=== PATIENT | female | born 1925 | race Caucasian/White ===

== ENCOUNTER 2016-11-17 12:14 | Inpatient (IN) | payer MEDICARE, OTHER ==
[~2016-11-17] VITALS: Ht 154.9 cm; Wt 56.2 kg
[~2016-11-17 12:14] MED LIST: BENA20TA2 PO; CHOL200026 PO; FLUC100T8 PO; FURO40TA5 PO; GEL100GE MC; HYDR-3976 PO; LACT-15 PO; LEVO50TA8 PO; LORA0.5T PO; POTA-10 PO; QUET25TA PO; RIVA10TA PO; SIMV20TA6 PO; TEMA15CA PO; [UNRECOGNIZED DRUG - CODE] TP
[2016-11-17] MEDS ORDERED: VANCOMYCIN 1 GM in IV D5W 250 ML IV ONE (12:30)
[2016-11-17] MEDS ORDERED: PIPERACILLIN /TAZOBACTAM 3.375 G in IV D5W 50 ML IV ONE (12:30)
[2016-11-17 13:00] LABS: BASOPHILS # (AUTO) 0.5 /CMM (0.0-0.2); BASOPHILS % (AUTO) 2.6 % (0.0-2.0); DIFF TOTAL % 100 %; EOSINOPHILS # (AUTO) 0.2 /CMM (0.0-0.7); EOSINOPHILS % (AUTO) 0.9 % (0.0-6.0); HEMATOCRIT 42 % (33-45); HEMOGLOBIN 13.4 g/dL (11.5-14.8); LYMPHOCYTES # (AUTO) 1.5 /CMM (0.8-4.8); LYMPHOCYTES % (AUTO) 7.3 % (20.0-44.0); MEAN CORPUSCULAR HEMOGLOBIN 29 PG (26.0-33.0); MEAN CORPUSCULAR HGB CONC 32 g/dl (31.0-36.0); MEAN CORPUSCULAR VOLUME 92 fL (82-100); MONOCYTES # (AUTO) 0.3 /CMM (0.1-1.30); MONOCYTES % (AUTO) 1.6 % (2.0-12.0); NEUTROPHILS # (AUTO) 17.9 /CMM (1.8-8.9); NEUTROPHILS % (AUTO) 87.6 % (43.0-81.0); PLATELET COUNT (AUTO) 265 /CMM (150-450); RED BLOOD CELL COUNT(AUTO) 4.57 MIL/uL (4.0-5.2); WHITE BLOOD COUNT (AUTO) 20.4 K/uL (4.3-11.0)
[2016-11-17 13:11] LABS: INR 1.11 (0.87-1.13); PROTHROMBIN TIME 11.7 SECS (9.5-12.7)
[2016-11-17 13:15] LABS: TROPONIN I 0.039 ng/mL (0.00-0.056)
[2016-11-17 13:19] LABS: ADD UA MICROSCOPIC YES; KETONES,URINE Negative (NEGATIVE); LEUKOCYTE ESTERASE ,URINE Trace (NEGATIVE); PH,URINE 5.5 (5.0-8.0)
[2016-11-17 13:23] LABS: ALANINE AMINOTRANSFERASE 13 U/L (12-78); ALBUMIN 2.2 g/dL (3.4-5.0); ANION GAP 13 (5-14); ASPARTATE AMINOTRANSFERASE 24 U/L (15-37); BILIRUBIN,DIRECT 0.6 mg/dL (0.0-0.2); BILIRUBIN,TOTAL 1.1 mg/dL (0.2-1.0); CALCIUM, SERUM 8.9 mg/dL (8.5-10.1); CARBON DIOXIDE 29 mmol/L (21-32); CHLORIDE 99 mmol/L (98-107); CREATININE 1.9 mg/dL (0.6-1.3); GLUCOSE 106 mg/dL (74-106); INDIRECT BILIRUBIN 0.5 mg/dL (0.0-1.1); POTASSIUM 4.9 mmol/L (3.5-5.1); SODIUM SERUM 136 mmol/L (136-145); TOTAL PROTEIN, SERUM 6.7 g/dL (6.4-8.2); UREA NITROGEN, BLOOD 52 mg/dL (7-18)
[2016-11-17 13:30] LABS: RBC,URINE 0-2 /HPF (0-2)
[2016-11-17 13:31] LABS: ADD URINE CULTURE YES
[2016-11-17] MEDS ORDERED: IV SET PRIMARY PUMP SET 1 EA INFUS.SET MC ONE ×2 (13:31→17:28)
[2016-11-17 13:47] LABS: LACTIC ACID 2.8 mmol/L (0.4-2.0)
[2016-11-17] MEDS ORDERED: IV NS 0.9% 1,000 ML ONE (13:50)
[2016-11-17] MEDS ORDERED: IV SET PRIMARY 1 EA INFUS.SET MC ONE ×2 (13:50→13:57)
[2016-11-17 13:54] LABS: *LACTIC ACID REFLEX FLAG YES
[2016-11-17] MEDS ORDERED: IV NS 0.9% 250 ML IV ONE ×2 (13:57→14:00)
[2016-11-17] MEDS ORDERED: IV NS 0.9% 500 ML IV ONE ×2 (13:57→14:00)
[2016-11-17] MEDS ORDERED: IV NS 0.9% 1,000 ML IV ONE (14:00)
[2016-11-17 15:20] LABS: BAND % (MANUAL) 2 % (0.0-5.0); LYMPHOCYTES % (MANUAL) 6 % (16-48)
[2016-11-17 15:21] LABS: ANISOCYTOSIS 2+; BASOPHILS % (MANUAL) 0 % (0.0-2.0); EOSINOPHILS % (MANUAL) 0 % (0-4)
[2016-11-17 15:22] LABS: PLATELET ESTIMATE ADEQUATE; RBC MORPHOLOGY COMMENT NORMAL RBC MORPH
[2016-11-17 16:00] VITALS: BP 134/65
[2016-11-17] MEDS ORDERED: Z GUARD REMEDY 2 OZ OINT TP PRN (16:30)
[2016-11-17] MEDS ORDERED: ONDANSETRON HCL/PF 4 MG/2 ML VIAL IVP PRN (16:30)
[2016-11-17] MEDS ORDERED: MAG HYDROX/AL HYDROX/SIMETH 30 ML UDC PO PRN (16:30)
[2016-11-17] MEDS ORDERED: ACETAMINOPHEN 325 MG TABLET PO PRN (16:30)
[2016-11-17] MEDS ORDERED: MAGNESIUM HYDROXIDE 30 ML UDC PO PRN (16:30)
[2016-11-17] MEDS ORDERED: LORAZEPAM 0.5 MG TABLET PO PRN (16:30)
[2016-11-17] MEDS ORDERED: FEE PK DOSING 1 MIN EA MC ONE (16:47)
[2016-11-17] MEDS: IV NS 0.9% 1,000 ML IV PRN (17:42)
[2016-11-17] MEDS: RIVAROXABAN 10 MG TABLET PO SCH (17:43)
[2016-11-17 20:00] VITALS: BP 91/56
[2016-11-17] MEDS: SIMVASTATIN 20 MG TABLET PO SCH (21:22)
[2016-11-17] MEDS: QUETIAPINE FUMARATE 25 MG TABLET PO SCH (21:22)
[2016-11-17] MEDS: PIPERACILLIN /TAZOBACTAM 2.25 G in IV D5W 50 ML IV SCH (21:25)
[2016-11-17] MEDS: HYDROGEL DRESSING 90 GM TUBE TP SCH (21:33)
[2016-11-17] MEDS ORDERED: TEMAZEPAM 15 MG CAPSULE PO PRN (22:00)
[2016-11-17] MEDS ORDERED: ZOLPIDEM TARTRATE 5 MG TABLET PO PRN (22:00)
[2016-11-18] VITALS (7 sets, daily range): BP systolic 86–106; BP diastolic 54–57
[2016-11-18] MEDS: PIPERACILLIN /TAZOBACTAM 2.25 G in IV D5W 50 ML IV SCH ×3 (04:21→20:46)
[2016-11-18 06:44] LABS: DIFF TOTAL % 100 %; EOSINOPHILS % (AUTO) 0.1 % (0.0-6.0); HEMATOCRIT 36 % (33-45); HEMOGLOBIN 11.6 g/dL (11.5-14.8); LYMPHOCYTES # (AUTO) 0.5 /CMM (0.8-4.8); LYMPHOCYTES % (AUTO) 2.6 % (20.0-44.0); MEAN CORPUSCULAR HEMOGLOBIN 30 PG (26.0-33.0); MEAN CORPUSCULAR HGB CONC 32 g/dl (31.0-36.0); MEAN CORPUSCULAR VOLUME 94 fL (82-100); MONOCYTES # (AUTO) 0.3 /CMM (0.1-1.30); MONOCYTES % (AUTO) 1.3 % (2.0-12.0); PLATELET COUNT (AUTO) 216 /CMM (150-450); RED BLOOD CELL COUNT(AUTO) 3.85 MIL/uL (4.0-5.2); WHITE BLOOD COUNT (AUTO) 18.8 K/uL (4.3-11.0)
[2016-11-18] MEDS: PANTOPRAZOLE 40 MG TABLET.DR PO SCH (07:30)
[2016-11-18] MEDS: HYDROCODONE/APAP 5/325MG 1 EACH TABLET PO PRN ×2 (07:31→12:34)
[2016-11-18] MEDS: LEVOTHYROXINE SODIUM 50 MCG TABLET PO SCH (09:21)
[2016-11-18] MEDS: CHOLECALCIFEROL 1,000 UNIT TABLET (VIT D3) PO SCH (09:21)
[2016-11-18] MEDS: RIVAROXABAN 10 MG TABLET PO SCH ×2 (09:21→17:41)
[2016-11-18] MEDS: HYDROGEL DRESSING 90 GM TUBE TP SCH ×2 (09:22→20:46)
[2016-11-18 09:26] LABS: CALCIUM, SERUM 8.5 mg/dL (8.5-10.1); CREATININE 1.7 mg/dL (0.6-1.3); PHOSPHORUS 5.3 mg/dL (2.5-4.9); POTASSIUM 4.3 mmol/L (3.5-5.1)
[2016-11-18 10:26] LABS: THYROID STIMULATING HORMONE 3.842 uIU/mL (0.358-3.74)
[2016-11-18] MEDS: NEOMY SULF/BACITRAC ZN/POLY 15 GM TUBE TP SCH (14:46)
[2016-11-18] MEDS: IV NS 0.9% 1,000 ML IV PRN ×2 (14:46→23:22)
[2016-11-18] MEDS ORDERED: IV NS 0.9% 500 ML BAG IV ONE (20:00)
[2016-11-18] MEDS ORDERED: MORPHINE SULFATE INJ 2 MG/ML DISP.SYRIN IV PRN (20:00)
[2016-11-18] MEDS ORDERED: MORPHINE SULFATE INJ 2 MG/ML DISP.SYRIN ONE (20:08)
[2016-11-18] MEDS ORDERED: MUPIROCIN OINT 2% 22 GM TUBE SCH (21:00)
[2016-11-18] MEDS: MUPIROCIN OINT 2% 22 GM TUBE SCH (21:02)
[2016-11-18] MEDS: SIMVASTATIN 20 MG TABLET PO SCH (21:12)
[2016-11-18] MEDS: QUETIAPINE FUMARATE 25 MG TABLET PO SCH (21:12)
[2016-11-19] MEDS: VANCOMYCIN 0.75 GM in IV D5W 250 ML IV SCH (02:00)
[2016-11-19] MEDS ORDERED: SECONDARY IV SET 1 EA INFUS.SET MC ONE (02:03)
[2016-11-19] MEDS: PIPERACILLIN /TAZOBACTAM 2.25 G in IV D5W 50 ML IV SCH ×3 (05:04→20:53)
[2016-11-19 07:21] LABS: HEMATOCRIT 33 % (33-45); HEMOGLOBIN 10.8 g/dL (11.5-14.8); MEAN CORPUSCULAR HEMOGLOBIN 30 PG (26.0-33.0); MEAN CORPUSCULAR HGB CONC 32 g/dl (31.0-36.0); MEAN CORPUSCULAR VOLUME 94 fL (82-100); PLATELET COUNT (AUTO) 176 /CMM (150-450); RED BLOOD CELL COUNT(AUTO) 3.55 MIL/uL (4.0-5.2)
[2016-11-19 07:46] LABS: CALCIUM, SERUM 7.8 mg/dL (8.5-10.1); PHOSPHORUS 5.5 mg/dL (2.5-4.9); POTASSIUM 4.7 mmol/L (3.5-5.1)
[2016-11-19 08:00] VITALS: BP 79/41
[2016-11-19 08:00] LABS: BAND % (MANUAL) 3 % (0.0-5.0); EOSINOPHILS % (MANUAL) 2 % (0-4); LYMPHOCYTES % (MANUAL) 6 % (16-48); PLATELET ESTIMATE ADEQUATE
[2016-11-19 08:01] LABS: ANISOCYTOSIS 1+; HYPOCHROMASIA 1+; POIKILOCYTOSIS RARE
[2016-11-19] MEDS: CHOLECALCIFEROL 1,000 UNIT TABLET (VIT D3) PO SCH (08:32)
[2016-11-19] MEDS: PANTOPRAZOLE 40 MG TABLET.DR PO SCH (08:32)
[2016-11-19] MEDS: RIVAROXABAN 10 MG TABLET PO SCH ×2 (08:32→17:05)
[2016-11-19] MEDS: LEVOTHYROXINE SODIUM 50 MCG TABLET PO SCH (08:32)
[2016-11-19] MEDS: NEOMY SULF/BACITRAC ZN/POLY 15 GM TUBE TP SCH (08:35)
[2016-11-19] MEDS: HYDROGEL DRESSING 90 GM TUBE TP SCH ×2 (08:35→20:54)
[2016-11-19] MEDS: MUPIROCIN OINT 2% 22 GM TUBE SCH ×2 (08:36→20:54)
[2016-11-19] MEDS ORDERED: Z GUARD REMEDY 2 OZ OINT TP PRN (14:30)
[2016-11-19] MEDS: CADEXOMER IODINE 40 GM TUBE TP SCH (15:16)
[2016-11-19 16:00] VITALS: BP 79/42
[2016-11-19] MEDS: LACTOBACILLUS RHAMNOSUS GG 1 EACH CAP.SPRINK PO SCH (17:02)
[2016-11-19] MEDS: Z GUARD REMEDY 2 OZ OINT TP SCH (17:08)
[2016-11-19 17:36] VITALS: BP_SYST 129; BP_SYST 139; BP_SYST 143; BP_DIAS 67; BP_DIAS 80; BP_DIAS 82
[2016-11-19 20:00] VITALS: BP 73/53
[2016-11-19] MEDS: SIMVASTATIN 20 MG TABLET PO SCH (22:01)
[2016-11-19] MEDS: QUETIAPINE FUMARATE 25 MG TABLET PO SCH (22:01)
[2016-11-20] MEDS: PIPERACILLIN /TAZOBACTAM 2.25 G in IV D5W 50 ML IV SCH ×3 (04:52→21:09)
[2016-11-20 08:00] VITALS: BP 74/50
[2016-11-20] MEDS: BOOST PLUS FOOD-VANILLA 237 ML BOX PO SCH ×3 (08:16→16:05)
[2016-11-20] MEDS: LEVOTHYROXINE SODIUM 50 MCG TABLET PO SCH (08:18)
[2016-11-20] MEDS: CHOLECALCIFEROL 1,000 UNIT TABLET (VIT D3) PO SCH (08:18)
[2016-11-20] MEDS: PANTOPRAZOLE 40 MG TABLET.DR PO SCH (08:18)
[2016-11-20] MEDS: MULTIVITAMINS,THERAPEUTIC 1 UDTAB TABLET PO SCH (08:18)
[2016-11-20] MEDS: LACTOBACILLUS RHAMNOSUS GG 1 EACH CAP.SPRINK PO SCH ×2 (08:18→16:04)
[2016-11-20] MEDS: ASCORBIC ACID 500 MG TABLET PO SCH (08:18)
[2016-11-20] MEDS: Z GUARD REMEDY 2 OZ OINT TP SCH ×2 (08:20→16:06)
[2016-11-20] MEDS: HYDROGEL DRESSING 90 GM TUBE TP SCH ×2 (08:20→21:17)
[2016-11-20] MEDS: MUPIROCIN OINT 2% 22 GM TUBE SCH ×2 (08:21→21:17)
[2016-11-20] MEDS: CADEXOMER IODINE 40 GM TUBE TP SCH (08:22)
[2016-11-20] MEDS: NEOMY SULF/BACITRAC ZN/POLY 15 GM TUBE TP SCH (08:23)
[2016-11-20] MEDS: RIVAROXABAN 10 MG TABLET PO SCH ×2 (08:24→16:04)
[2016-11-20] MEDS: VANCOMYCIN 0.75 GM in IV D5W 250 ML IV SCH (13:34)
[2016-11-20] MEDS ORDERED: ALBUMIN 25% 25 GM in PREMIX 1 EA IV SCH (14:00)
[2016-11-20 16:00] VITALS: BP 83/48
[2016-11-20] MEDS ORDERED: IV NS 0.9% 500 ML IV ONE (19:30)
[2016-11-20 20:00] VITALS: BP 74/41
[2016-11-20] MEDS: QUETIAPINE FUMARATE 25 MG TABLET PO SCH (21:09)
[2016-11-20] MEDS: SIMVASTATIN 20 MG TABLET PO SCH (21:09)
[2016-11-20] MEDS ORDERED: IV SET PRIMARY PUMP SET 1 EA INFUS.SET MC ONE (21:36)
[2016-11-20 22:00] VITALS: BP 74/41
[2016-11-21] MEDS: PIPERACILLIN /TAZOBACTAM 2.25 G in IV D5W 50 ML IV SCH ×3 (05:40→21:55)
[2016-11-21 08:00] VITALS: BP 88/56
[2016-11-21 08:00] LABS: DIFF TOTAL % 100 %; EOSINOPHILS % (AUTO) 0.2 % (0.0-6.0); HEMATOCRIT 27 % (33-45); HEMOGLOBIN 8.9 g/dL (11.5-14.8); LYMPHOCYTES # (AUTO) 1.4 /CMM (0.8-4.8); LYMPHOCYTES % (AUTO) 11.4 % (20.0-44.0); MEAN CORPUSCULAR HEMOGLOBIN 31 PG (26.0-33.0); MEAN CORPUSCULAR HGB CONC 34 g/dl (31.0-36.0); MEAN CORPUSCULAR VOLUME 91 fL (82-100); MONOCYTES # (AUTO) 0.8 /CMM (0.1-1.30); MONOCYTES % (AUTO) 6.7 % (2.0-12.0); NEUTROPHILS # (AUTO) 10.1 /CMM (1.8-8.9); NEUTROPHILS % (AUTO) 81.7 % (43.0-81.0); PLATELET COUNT (AUTO) 188 /CMM (150-450); RED BLOOD CELL COUNT(AUTO) 2.93 MIL/uL (4.0-5.2); WHITE BLOOD COUNT (AUTO) 12.3 K/uL (4.3-11.0)
[2016-11-21] MEDS: IV NS 0.9% 1,000 ML IV PRN ×2 (08:17→21:55)
[2016-11-21] MEDS: MULTIVITAMINS,THERAPEUTIC 1 UDTAB TABLET PO SCH (08:18)
[2016-11-21] MEDS: PANTOPRAZOLE 40 MG TABLET.DR PO SCH (08:18)
[2016-11-21] MEDS: LEVOTHYROXINE SODIUM 50 MCG TABLET PO SCH (08:18)
[2016-11-21] MEDS: CHOLECALCIFEROL 1,000 UNIT TABLET (VIT D3) PO SCH (08:18)
[2016-11-21] MEDS: LACTOBACILLUS RHAMNOSUS GG 1 EACH CAP.SPRINK PO SCH ×2 (08:18→17:43)
[2016-11-21] MEDS: ASCORBIC ACID 500 MG TABLET PO SCH (08:18)
[2016-11-21] MEDS: RIVAROXABAN 10 MG TABLET PO SCH ×2 (08:19→17:43)
[2016-11-21] MEDS: MUPIROCIN OINT 2% 22 GM TUBE SCH ×2 (08:19→21:58)
[2016-11-21] MEDS: HYDROGEL DRESSING 90 GM TUBE TP SCH ×2 (08:19→21:59)
[2016-11-21] MEDS: CADEXOMER IODINE 40 GM TUBE TP SCH (08:19)
[2016-11-21] MEDS: Z GUARD REMEDY 2 OZ OINT TP SCH ×2 (08:20→17:44)
[2016-11-21] MEDS: NEOMY SULF/BACITRAC ZN/POLY 15 GM TUBE TP SCH (08:20)
[2016-11-21] MEDS: BOOST PLUS FOOD-VANILLA 237 ML BOX PO SCH ×3 (08:22→17:44)
[2016-11-21 09:10] LABS: CALCIUM, SERUM 7.6 mg/dL (8.5-10.1); CREATININE 1.7 mg/dL (0.6-1.3); PHOSPHORUS 4.3 mg/dL (2.5-4.9); POTASSIUM 4.8 mmol/L (3.5-5.1)
[2016-11-21 16:00] VITALS: BP 80/46
[2016-11-21 20:00] VITALS: BP 77/52
[2016-11-21] MEDS: QUETIAPINE FUMARATE 25 MG TABLET PO SCH (21:59)
[2016-11-21] MEDS: SIMVASTATIN 20 MG TABLET PO SCH (21:59)
[2016-11-22] MEDS: VANCOMYCIN 0.75 GM in IV D5W 250 ML IV SCH (02:30)
[2016-11-22] MEDS: PIPERACILLIN /TAZOBACTAM 2.25 G in IV D5W 50 ML IV SCH ×3 (05:08→21:08)
[2016-11-22 08:00] VITALS: BP 84/51
[2016-11-22] MEDS: PANTOPRAZOLE 40 MG TABLET.DR PO SCH (08:40)
[2016-11-22] MEDS: LEVOTHYROXINE SODIUM 50 MCG TABLET PO SCH (08:41)
[2016-11-22] MEDS: ASCORBIC ACID 500 MG TABLET PO SCH (08:41)
[2016-11-22] MEDS: CHOLECALCIFEROL 1,000 UNIT TABLET (VIT D3) PO SCH (08:41)
[2016-11-22] MEDS: MULTIVITAMINS,THERAPEUTIC 1 UDTAB TABLET PO SCH (08:41)
[2016-11-22] MEDS: RIVAROXABAN 10 MG TABLET PO SCH (08:43)
[2016-11-22] MEDS: LACTOBACILLUS RHAMNOSUS GG 1 EACH CAP.SPRINK PO SCH ×2 (08:43→16:42)
[2016-11-22] MEDS: CADEXOMER IODINE 40 GM TUBE TP SCH (08:52)
[2016-11-22] MEDS: NEOMY SULF/BACITRAC ZN/POLY 15 GM TUBE TP SCH (08:53)
[2016-11-22] MEDS: HYDROGEL DRESSING 90 GM TUBE TP SCH ×2 (08:57→23:04)
[2016-11-22] MEDS: BOOST PLUS FOOD-VANILLA 237 ML BOX PO SCH ×3 (08:57→17:20)
[2016-11-22] MEDS: Z GUARD REMEDY 2 OZ OINT TP SCH ×2 (08:58→17:20)
[2016-11-22] MEDS: HYDROCODONE/APAP 5/325MG 1 EACH TABLET PO PRN ×2 (09:37→15:30)
[2016-11-22 09:55] LABS: BASOPHILS % (AUTO) 0.2 % (0.0-2.0); DIFF TOTAL % 100 %; EOSINOPHILS % (AUTO) 0.3 % (0.0-6.0); HEMATOCRIT 24 % (33-45); HEMOGLOBIN 7.8 g/dL (11.5-14.8); LYMPHOCYTES # (AUTO) 0.5 /CMM (0.8-4.8); LYMPHOCYTES % (AUTO) 4.5 % (20.0-44.0); MEAN CORPUSCULAR HEMOGLOBIN 30 PG (26.0-33.0); MEAN CORPUSCULAR HGB CONC 33 g/dl (31.0-36.0); MEAN CORPUSCULAR VOLUME 93 fL (82-100); MONOCYTES # (AUTO) 0.6 /CMM (0.1-1.30); MONOCYTES % (AUTO) 4.7 % (2.0-12.0); NEUTROPHILS # (AUTO) 10.6 /CMM (1.8-8.9); NEUTROPHILS % (AUTO) 90.3 % (43.0-81.0); PLATELET COUNT (AUTO) 206 /CMM (150-450); RED BLOOD CELL COUNT(AUTO) 2.56 MIL/uL (4.0-5.2); WHITE BLOOD COUNT (AUTO) 11.7 K/uL (4.3-11.0)
[2016-11-22] MEDS: MUPIROCIN OINT 2% 22 GM TUBE SCH ×2 (10:14→21:00)
[2016-11-22 12:12] LABS: CALCIUM, SERUM 8.1 mg/dL (8.5-10.1); CREATININE 1.7 mg/dL (0.6-1.3); POTASSIUM 4.2 mmol/L (3.5-5.1)
[2016-11-22 16:00] VITALS: BP 71/38
[2016-11-22 16:21] LABS: HEMOGLOBIN 7.7 g/dL (11.5-14.8)
[2016-11-22 20:00] VITALS: BP_SYST 85; BP_DIAS 50; BP_DIAS 70
[2016-11-22] MEDS: SIMVASTATIN 20 MG TABLET PO SCH (21:09)
[2016-11-22] MEDS: QUETIAPINE FUMARATE 25 MG TABLET PO SCH (21:09)
[2016-11-22] MEDS ORDERED: BLOOD IV SET 1 EA INFUS.SET MC ONE (21:22)
[2016-11-22] MEDS ORDERED: IV NS 0.9% 250 ML IV ONE (21:22)
[2016-11-22 21:43] VITALS: BP 62/39
[2016-11-22 21:58] VITALS: BP 68/47
[2016-11-22 22:43] VITALS: BP 73/44
[2016-11-23] MEDS ORDERED: IV SET PRIMARY PUMP SET 1 EA INFUS.SET MC ONE (02:14)
[2016-11-23] MEDS: IV NS 0.9% 1,000 ML IV PRN ×2 (02:19→20:49)
[2016-11-23] MEDS ORDERED: SECONDARY IV SET 1 EA INFUS.SET MC ONE (05:25)
[2016-11-23] MEDS: PIPERACILLIN /TAZOBACTAM 2.25 G in IV D5W 50 ML IV SCH ×3 (05:32→22:43)
[2016-11-23 08:00] VITALS: BP 85/47
[2016-11-23] MEDS: LEVOTHYROXINE SODIUM 50 MCG TABLET PO SCH (08:06)
[2016-11-23] MEDS: PANTOPRAZOLE 40 MG TABLET.DR PO SCH (08:06)
[2016-11-23] MEDS: LACTOBACILLUS RHAMNOSUS GG 1 EACH CAP.SPRINK PO SCH ×2 (08:06→17:56)
[2016-11-23] MEDS: ASCORBIC ACID 500 MG TABLET PO SCH (08:07)
[2016-11-23] MEDS: CHOLECALCIFEROL 1,000 UNIT TABLET (VIT D3) PO SCH (08:07)
[2016-11-23] MEDS: MULTIVITAMINS,THERAPEUTIC 1 UDTAB TABLET PO SCH (08:07)
[2016-11-23] MEDS: HYDROGEL DRESSING 90 GM TUBE TP SCH ×2 (08:15→22:45)
[2016-11-23] MEDS: Z GUARD REMEDY 2 OZ OINT TP SCH ×2 (08:16→18:01)
[2016-11-23] MEDS: NEOMY SULF/BACITRAC ZN/POLY 15 GM TUBE TP SCH (08:16)
[2016-11-23] MEDS: CADEXOMER IODINE 40 GM TUBE TP SCH (08:16)
[2016-11-23] MEDS: HYDROCODONE/APAP 5/325MG 1 EACH TABLET PO PRN ×3 (09:30→17:56)
[2016-11-23 09:51] LABS: CALCIUM, SERUM 8.2 mg/dL (8.5-10.1); CREATININE 1.9 mg/dL (0.6-1.3); POTASSIUM 4.6 mmol/L (3.5-5.1)
[2016-11-23 09:56] LABS: BASOPHILS % (AUTO) 0.3 % (0.0-2.0); DIFF TOTAL % 100 %; EOSINOPHILS % (AUTO) 0.3 % (0.0-6.0); HEMATOCRIT 29 % (33-45); HEMOGLOBIN 9.4 g/dL (11.5-14.8); LYMPHOCYTES # (AUTO) 0.7 /CMM (0.8-4.8); LYMPHOCYTES % (AUTO) 4.7 % (20.0-44.0); MEAN CORPUSCULAR HEMOGLOBIN 30 PG (26.0-33.0); MEAN CORPUSCULAR HGB CONC 33 g/dl (31.0-36.0); MEAN CORPUSCULAR VOLUME 92 fL (82-100); MONOCYTES # (AUTO) 0.7 /CMM (0.1-1.30); MONOCYTES % (AUTO) 4.9 % (2.0-12.0); NEUTROPHILS # (AUTO) 12.5 /CMM (1.8-8.9); NEUTROPHILS % (AUTO) 89.8 % (43.0-81.0); PLATELET COUNT (AUTO) 169 /CMM (150-450); RED BLOOD CELL COUNT(AUTO) 3.13 MIL/uL (4.0-5.2)
[2016-11-23] MEDS: BOOST PLUS FOOD-VANILLA 237 ML BOX PO SCH ×3 (10:48→18:01)
[2016-11-23] MEDS: MUPIROCIN OINT 2% 22 GM TUBE SCH (10:48)
[2016-11-23 16:00] VITALS: BP 81/53
[2016-11-23 20:00] VITALS: BP 71/52
[2016-11-23] MEDS: SIMVASTATIN 20 MG TABLET PO SCH (22:42)
[2016-11-23] MEDS: QUETIAPINE FUMARATE 25 MG TABLET PO SCH (22:42)
[2016-11-24 02:17] VITALS: BP 71/52
[2016-11-24] MEDS: PIPERACILLIN /TAZOBACTAM 2.25 G in IV D5W 50 ML IV SCH ×3 (05:22→20:55)
[2016-11-24] MEDS: PANTOPRAZOLE 40 MG TABLET.DR PO SCH (07:30)
[2016-11-24 08:00] VITALS: BP 108/69
[2016-11-24] MEDS: BOOST PLUS FOOD-VANILLA 237 ML BOX PO SCH ×3 (08:00→17:47)
[2016-11-24 08:12] LABS: CALCIUM, SERUM 8.4 mg/dL (8.5-10.1); CREATININE 2.3 mg/dL (0.6-1.3); POTASSIUM 5.6 mmol/L (3.5-5.1)
[2016-11-24 08:48] LABS: BASOPHILS % (AUTO) 0.2 % (0.0-2.0); DIFF TOTAL % 100 %; EOSINOPHILS % (AUTO) 0.1 % (0.0-6.0); HEMATOCRIT 25 % (33-45); HEMOGLOBIN 7.9 g/dL (11.5-14.8); LYMPHOCYTES # (AUTO) 0.5 /CMM (0.8-4.8); LYMPHOCYTES % (AUTO) 2.5 % (20.0-44.0); MEAN CORPUSCULAR HEMOGLOBIN 30 PG (26.0-33.0); MEAN CORPUSCULAR HGB CONC 32 g/dl (31.0-36.0); MEAN CORPUSCULAR VOLUME 92 fL (82-100); MONOCYTES % (AUTO) 5.1 % (2.0-12.0); NEUTROPHILS # (AUTO) 18.1 /CMM (1.8-8.9); NEUTROPHILS % (AUTO) 92.1 % (43.0-81.0); PLATELET COUNT (AUTO) 147 /CMM (150-450); RED BLOOD CELL COUNT(AUTO) 2.66 MIL/uL (4.0-5.2); WHITE BLOOD COUNT (AUTO) 19.6 K/uL (4.3-11.0)
[2016-11-24] MEDS: LACTOBACILLUS RHAMNOSUS GG 1 EACH CAP.SPRINK PO SCH ×2 (09:00→17:47)
[2016-11-24] MEDS: MULTIVITAMINS,THERAPEUTIC 1 UDTAB TABLET PO SCH (09:00)
[2016-11-24] MEDS: NEOMY SULF/BACITRAC ZN/POLY 15 GM TUBE TP SCH (09:00)
[2016-11-24] MEDS: LEVOTHYROXINE SODIUM 50 MCG TABLET PO SCH (09:00)
[2016-11-24] MEDS ORDERED: IV NS 0.9% 500 ML IV ONE (09:00)
[2016-11-24] MEDS: Z GUARD REMEDY 2 OZ OINT TP SCH ×2 (09:00→17:46)
[2016-11-24] MEDS: HYDROGEL DRESSING 90 GM TUBE TP SCH ×2 (09:00→20:56)
[2016-11-24] MEDS ORDERED: VANCOMYCIN 500 MG in IV D5W 100 ML IV SCH (09:00)
[2016-11-24] MEDS: CHOLECALCIFEROL 1,000 UNIT TABLET (VIT D3) PO SCH (09:00)
[2016-11-24] MEDS: CADEXOMER IODINE 40 GM TUBE TP SCH (09:00)
[2016-11-24] MEDS: ASCORBIC ACID 500 MG TABLET PO SCH (09:00)
[2016-11-24 09:10] LABS: ANISOCYTOSIS 1+; BAND % (MANUAL) 9 % (0.0-5.0); CORRECTED WHITE BLOOD COUNT 18.7 K/uL (4.0-11.2); LYMPHOCYTES % (MANUAL) 4 % (16-48); PLATELET ESTIMATE DECREASED; POLYCHROMASIA 1+
[2016-11-24] MEDS ORDERED: ALBUMIN 25% 12.5 GM/50 ML BOTTLE IV ONE (11:00)
[2016-11-24] MEDS ORDERED: ALBUMIN 25% 25 GM in PREMIX 1 EA IV ONE (11:30)
[2016-11-24] MEDS ORDERED: SECONDARY IV SET 1 EA INFUS.SET MC ONE (12:28)
[2016-11-24] MEDS: HYDROCODONE/APAP 5/325MG 1 EACH TABLET PO PRN (15:41)
[2016-11-24 16:00] VITALS: BP 76/36
[2016-11-24 16:40] LABS: HEMOGLOBIN 8.3 g/dL (11.5-14.8)
[2016-11-24 20:00] VITALS: BP 72/38
[2016-11-24] MEDS: MUPIROCIN OINT 2% 22 GM TUBE SCH ×2 (21:19→21:51)
[2016-11-24] MEDS: SIMVASTATIN 20 MG TABLET PO SCH (21:20)
[2016-11-24] MEDS: QUETIAPINE FUMARATE 25 MG TABLET PO SCH (21:20)
[2016-11-25] VITALS (16 sets, daily range): BP systolic 70–87; BP diastolic 38–54
[2016-11-25 00:06] LABS: KETONES,URINE NEGATIVE (NEGATIVE); LEUKOCYTE ESTERASE ,URINE 3+ (NEGATIVE); PH,URINE 5.5 (5.0-8.0)
[2016-11-25 00:09] LABS: CREATININE, URINE 53.6 MG/DL (30.0-125.0); URINE TOTAL PROTEIN 204.2 mg/dL (0-11.9)
[2016-11-25 00:36] LABS: ADD UA MICROSCOPIC YES
[2016-11-25 00:41] LABS: ADD URINE CULTURE YES; RBC,URINE TOO NUMEROUS TO COUN /HPF (0-2); WBC,URINE TOO NUMEROUS TO COUN /HPF (0-3)
[2016-11-25] MEDS: IV NS 0.9% 1,000 ML IV PRN (01:43)
[2016-11-25] MEDS: PIPERACILLIN /TAZOBACTAM 2.25 G in IV D5W 50 ML IV SCH ×3 (04:16→22:20)
[2016-11-25 07:54] LABS: DIFF TOTAL % 100 %; HEMATOCRIT 21 % (33-45); LYMPHOCYTES # (AUTO) 0.7 /CMM (0.8-4.8); LYMPHOCYTES % (AUTO) 3.8 % (20.0-44.0); MEAN CORPUSCULAR HEMOGLOBIN 30 PG (26.0-33.0); MEAN CORPUSCULAR HGB CONC 32 g/dl (31.0-36.0); MEAN CORPUSCULAR VOLUME 93 fL (82-100); MONOCYTES # (AUTO) 0.9 /CMM (0.1-1.30); MONOCYTES % (AUTO) 5.2 % (2.0-12.0); NEUTROPHILS # (AUTO) 15.9 /CMM (1.8-8.9); PLATELET COUNT (AUTO) 180 /CMM (150-450); RED BLOOD CELL COUNT(AUTO) 2.27 MIL/uL (4.0-5.2); WHITE BLOOD COUNT (AUTO) 17.5 K/uL (4.3-11.0)
[2016-11-25 08:02] LABS: ALBUMIN 1.7 g/dL (3.4-5.0); CALCIUM, SERUM 8.1 mg/dL (8.5-10.1); CREATININE 2.7 mg/dL (0.6-1.3); POTASSIUM 5.5 mmol/L (3.5-5.1)
[2016-11-25 08:52] LABS: HEMOGLOBIN 6.8 g/dL (11.5-14.8)
[2016-11-25 09:00] LABS: BAND % (MANUAL) 9 % (0.0-5.0); CORRECTED WHITE BLOOD COUNT 16.4 K/uL (4.0-11.2); HYPOCHROMASIA 1+; LYMPHOCYTES % (MANUAL) 3 % (16-48); PLATELET ESTIMATE ADEQUATE
[2016-11-25] MEDS ORDERED: ALBUMIN 25% 12.5 GM in PREMIX 1 EA IV PRN (09:00)
[2016-11-25 09:01] LABS: ANISOCYTOSIS 2+; POIKILOCYTOSIS 1+; POLYCHROMASIA 1+; SPHEROCYTES 1+
[2016-11-25] MEDS: CHOLECALCIFEROL 1,000 UNIT TABLET (VIT D3) PO SCH (09:10)
[2016-11-25] MEDS: MULTIVITAMINS,THERAPEUTIC 1 UDTAB TABLET PO SCH (09:10)
[2016-11-25] MEDS: ASCORBIC ACID 500 MG TABLET PO SCH (09:10)
[2016-11-25] MEDS: LEVOTHYROXINE SODIUM 50 MCG TABLET PO SCH (09:10)
[2016-11-25] MEDS: PANTOPRAZOLE 40 MG TABLET.DR PO SCH (09:10)
[2016-11-25] MEDS: LACTOBACILLUS RHAMNOSUS GG 1 EACH CAP.SPRINK PO SCH ×2 (09:10→17:00)
[2016-11-25] MEDS: HYDROGEL DRESSING 90 GM TUBE TP SCH ×2 (09:12→22:23)
[2016-11-25] MEDS: CADEXOMER IODINE 40 GM TUBE TP SCH (09:13)
[2016-11-25] MEDS: NEOMY SULF/BACITRAC ZN/POLY 15 GM TUBE TP SCH (09:13)
[2016-11-25] MEDS: Z GUARD REMEDY 2 OZ OINT TP SCH ×2 (09:14→17:08)
[2016-11-25] MEDS: BOOST PLUS FOOD-VANILLA 237 ML BOX PO SCH ×3 (09:15→17:08)
[2016-11-25] MEDS ORDERED: BLOOD IV SET 1 EA INFUS.SET MC ONE ×2 (10:35→14:46)
[2016-11-25] MEDS ORDERED: IV NS 0.9% 250 ML IV ONE ×2 (10:35→14:46)
[2016-11-25] MEDS ORDERED: EPOETIN ALFA (20,000 UNIT) 20,000 UNIT/ML VIAL SQ ONE (11:30)
[2016-11-25] MEDS: MUPIROCIN OINT 2% 22 GM TUBE SCH ×2 (15:30→22:22)
[2016-11-25] MEDS ORDERED: SODIUM POLYSTYRENE SULFONATE 15 G/60 ML BOTTLE PO ONE (16:00)
[2016-11-25] MEDS ORDERED: SECONDARY IV SET 1 EA INFUS.SET MC ONE (18:25)
[2016-11-25] MEDS: SIMVASTATIN 20 MG TABLET PO SCH (22:23)
[2016-11-25] MEDS: QUETIAPINE FUMARATE 25 MG TABLET PO SCH (22:24)
[2016-11-26] MEDS: PIPERACILLIN /TAZOBACTAM 2.25 G in IV D5W 50 ML IV SCH ×3 (06:48→21:41)
[2016-11-26] MEDS: IV NS 0.9% 1,000 ML IV PRN (06:49)
[2016-11-26 08:39] LABS: BASOPHILS % (AUTO) 0.1 % (0.0-2.0); HEMOGLOBIN 11.8 g/dL (11.5-14.8)
[2016-11-26 08:41] LABS: DIFF TOTAL % 100 %; EOSINOPHILS % (AUTO) 0.2 % (0.0-6.0); HEMATOCRIT 36 % (33-45); LYMPHOCYTES # (AUTO) 0.6 /CMM (0.8-4.8); LYMPHOCYTES % (AUTO) 3.2 % (20.0-44.0); MEAN CORPUSCULAR HEMOGLOBIN 30 PG (26.0-33.0); MEAN CORPUSCULAR HGB CONC 33 g/dl (31.0-36.0); MEAN CORPUSCULAR VOLUME 90 fL (82-100); MONOCYTES # (AUTO) 0.7 /CMM (0.1-1.30); MONOCYTES % (AUTO) 3.7 % (2.0-12.0); NEUTROPHILS # (AUTO) 18.3 /CMM (1.8-8.9); NEUTROPHILS % (AUTO) 92.8 % (43.0-81.0); PLATELET COUNT (AUTO) 149 /CMM (150-450); RED BLOOD CELL COUNT(AUTO) 4.01 MIL/uL (4.0-5.2); WHITE BLOOD COUNT (AUTO) 19.7 K/uL (4.3-11.0)
[2016-11-26 08:54] LABS: CALCIUM, SERUM 8.7 mg/dL (8.5-10.1)
[2016-11-26] MEDS ORDERED: VANCOMYCIN 500 MG in IV D5W 100 ML IV SCH (09:00)
[2016-11-26] MEDS: Z GUARD REMEDY 2 OZ OINT TP SCH ×2 (09:00→17:00)
[2016-11-26 09:05] LABS: POTASSIUM 6.2 mmol/L (3.5-5.1)
[2016-11-26 10:25] LABS: BAND % (MANUAL) 8 % (0.0-5.0); EOSINOPHILS % (MANUAL) 1 % (0-4); LYMPHOCYTES % (MANUAL) 5 % (16-48)
[2016-11-26 10:26] LABS: ANISOCYTOSIS 2+; BURR CELLS 1+; PLATELET ESTIMATE ADEQUATE; POIKILOCYTOSIS 1+; POLYCHROMASIA 1+
[2016-11-26] MEDS: BOOST PLUS FOOD-VANILLA 237 ML BOX PO SCH ×3 (11:00→18:22)
[2016-11-26] MEDS: ASCORBIC ACID 500 MG TABLET PO SCH (11:00)
[2016-11-26] MEDS: PANTOPRAZOLE 40 MG TABLET.DR PO SCH (11:00)
[2016-11-26] MEDS: LEVOTHYROXINE SODIUM 50 MCG TABLET PO SCH (11:00)
[2016-11-26] MEDS ORDERED: SODIUM POLYSTYRENE SULFONATE 15 G/60 ML BOTTLE PO ONE (11:00)
[2016-11-26] MEDS: CHOLECALCIFEROL 1,000 UNIT TABLET (VIT D3) PO SCH (11:00)
[2016-11-26] MEDS ORDERED: SODIUM BICARBONATE SYR 50 MEQ/50 ML DISP.SYRIN IV ONE (11:00)
[2016-11-26] MEDS: MULTIVITAMINS,THERAPEUTIC 1 UDTAB TABLET PO SCH (11:01)
[2016-11-26] MEDS: LACTOBACILLUS RHAMNOSUS GG 1 EACH CAP.SPRINK PO SCH ×2 (11:01→18:22)
[2016-11-26] MEDS: CADEXOMER IODINE 40 GM TUBE TP SCH (11:03)
[2016-11-26] MEDS: NEOMY SULF/BACITRAC ZN/POLY 15 GM TUBE TP SCH (11:03)
[2016-11-26] MEDS: MUPIROCIN OINT 2% 22 GM TUBE SCH ×2 (11:04→21:42)
[2016-11-26 11:30] LABS: CORRECTED WHITE BLOOD COUNT 18.6 K/uL (4.0-11.2)
[2016-11-26 11:31] LABS: ALBUMIN 1.9 g/dL (3.4-5.0)
[2016-11-26 11:42] LABS: LACTIC ACID 2.8 mmol/L (0.4-2.0)
[2016-11-26 12:19] LABS: *LACTIC ACID REFLEX FLAG YES
[2016-11-26] MEDS: ALBUMIN 25% 25 GM in PREMIX 1 EA IV SCH ×3 (14:17→23:30)
[2016-11-26 15:33] LABS: CALCIUM, SERUM 8.4 mg/dL (8.5-10.1); CREATININE 3.2 mg/dL (0.6-1.3); POTASSIUM 5.3 mmol/L (3.5-5.1)
[2016-11-26 16:00] VITALS: BP 90/50
[2016-11-26] MEDS: HYDROGEL DRESSING 90 GM TUBE TP SCH ×2 (18:24→22:04)
[2016-11-26 20:00] VITALS: BP 106/53
[2016-11-26] MEDS ORDERED: SECONDARY IV SET 1 EA INFUS.SET MC ONE (21:41)
[2016-11-26] MEDS: LINEZOLID 600 MG TABLET PO SCH (21:41)
[2016-11-26] MEDS: SIMVASTATIN 20 MG TABLET PO SCH (21:42)
[2016-11-26] MEDS: QUETIAPINE FUMARATE 25 MG TABLET PO SCH (21:42)
[2016-11-26 22:22] LABS: BILIRUBIN,DIRECT 0.7 mg/dL (0.0-0.2); BILIRUBIN,TOTAL 1.2 mg/dL (0.2-1.0)
[2016-11-26 23:58] VITALS: BP 97/51
[2016-11-27 04:00] VITALS: BP 75/52
[2016-11-27] MEDS: ALBUMIN 25% 25 GM in PREMIX 1 EA IV SCH (04:17)
[2016-11-27] MEDS: IV NS 0.9% 1,000 ML IV PRN ×2 (04:17→18:23)
[2016-11-27] MEDS: PIPERACILLIN /TAZOBACTAM 2.25 G in IV D5W 50 ML IV SCH ×3 (04:48→21:34)
[2016-11-27 06:47] VITALS: BP 89/68
[2016-11-27 06:49] LABS: CALCIUM, SERUM 8.1 mg/dL (8.5-10.1); CREATININE 3.3 mg/dL (0.6-1.3); POTASSIUM 4.8 mmol/L (3.5-5.1)
[2016-11-27 06:55] LABS: ALBUMIN 3.5 g/dL (3.4-5.0); BILIRUBIN,TOTAL 1.3 mg/dL (0.2-1.0); TOTAL PROTEIN, SERUM 5.7 g/dL (6.4-8.2)
[2016-11-27 07:34] LABS: DIFF TOTAL % 100 %; EOSINOPHILS # (AUTO) 0.1 /CMM (0.0-0.7); EOSINOPHILS % (AUTO) 0.5 % (0.0-6.0); HEMATOCRIT 24 % (33-45); HEMOGLOBIN 7.8 g/dL (11.5-14.8); LYMPHOCYTES # (AUTO) 0.4 /CMM (0.8-4.8); LYMPHOCYTES % (AUTO) 3.5 % (20.0-44.0); MEAN CORPUSCULAR HEMOGLOBIN 30 PG (26.0-33.0); MEAN CORPUSCULAR HGB CONC 33 g/dl (31.0-36.0); MEAN CORPUSCULAR VOLUME 91 fL (82-100); MONOCYTES # (AUTO) 0.4 /CMM (0.1-1.30); MONOCYTES % (AUTO) 3.2 % (2.0-12.0); NEUTROPHILS # (AUTO) 10.9 /CMM (1.8-8.9); NEUTROPHILS % (AUTO) 92.8 % (43.0-81.0); PLATELET COUNT (AUTO) 98 /CMM (150-450); RED BLOOD CELL COUNT(AUTO) 2.62 MIL/uL (4.0-5.2)
[2016-11-27 07:40] LABS: LACTIC ACID 2.2 mmol/L (0.4-2.0)
[2016-11-27 08:00] VITALS: BP 89/68
[2016-11-27] MEDS: PANTOPRAZOLE 40 MG TABLET.DR PO SCH (08:31)
[2016-11-27] MEDS: BOOST PLUS FOOD-VANILLA 237 ML BOX PO SCH ×3 (08:31→17:44)
[2016-11-27] MEDS: CHOLECALCIFEROL 1,000 UNIT TABLET (VIT D3) PO SCH (08:32)
[2016-11-27] MEDS: FLUCONAZOLE (100 MG) 100 MG TABLET PO SCH (08:32)
[2016-11-27] MEDS: LINEZOLID 600 MG TABLET PO SCH ×2 (08:32→21:34)
[2016-11-27] MEDS: HYDROGEL DRESSING 90 GM TUBE TP SCH ×2 (08:32→22:00)
[2016-11-27] MEDS: LACTOBACILLUS RHAMNOSUS GG 1 EACH CAP.SPRINK PO SCH ×2 (08:32→17:44)
[2016-11-27] MEDS: LEVOTHYROXINE SODIUM 50 MCG TABLET PO SCH (08:32)
[2016-11-27] MEDS: MULTIVITAMINS,THERAPEUTIC 1 UDTAB TABLET PO SCH (08:32)
[2016-11-27] MEDS: ASCORBIC ACID 500 MG TABLET PO SCH (08:32)
[2016-11-27] MEDS: Z GUARD REMEDY 2 OZ OINT TP SCH ×2 (08:32→17:44)
[2016-11-27] MEDS: CADEXOMER IODINE 40 GM TUBE TP SCH (08:33)
[2016-11-27] MEDS: MUPIROCIN OINT 2% 22 GM TUBE SCH ×2 (08:33→21:35)
[2016-11-27] MEDS: NEOMY SULF/BACITRAC ZN/POLY 15 GM TUBE TP SCH (08:34)
[2016-11-27 12:35] LABS: WHITE BLOOD COUNT (AUTO) 13.6 K/uL (4.3-11.0)
[2016-11-27 12:36] LABS: CORRECTED WHITE BLOOD COUNT 12.1 K/uL (4.0-11.2); LYMPHOCYTES % (MANUAL) 3 % (16-48)
[2016-11-27 12:38] LABS: ANISOCYTOSIS 1+; MICROCYTOSIS 1+; PLATELET ESTIMATE DECREASED
[2016-11-27 16:00] VITALS: BP 88/46
[2016-11-27 20:00] VITALS: BP 67/36
[2016-11-27] MEDS: QUETIAPINE FUMARATE 25 MG TABLET PO SCH (21:34)
[2016-11-27] MEDS: SIMVASTATIN 20 MG TABLET PO SCH (21:34)
[2016-11-28] MEDS: PIPERACILLIN /TAZOBACTAM 2.25 G in IV D5W 50 ML IV SCH (05:01)
[2016-11-28] MEDS ORDERED: IV SET PRIMARY PUMP SET 1 EA INFUS.SET MC ONE (05:24)
[2016-11-28 06:48] LABS: CALCIUM, SERUM 8.2 mg/dL (8.5-10.1); CREATININE 3.5 mg/dL (0.6-1.3); POTASSIUM 4.5 mmol/L (3.5-5.1)
[2016-11-28 08:00] VITALS: BP 92/47
[2016-11-28] MEDS: BOOST PLUS FOOD-VANILLA 237 ML BOX PO SCH ×3 (09:11→17:23)
[2016-11-28] MEDS: LINEZOLID 600 MG TABLET PO SCH (09:11)
[2016-11-28] MEDS: ASCORBIC ACID 500 MG TABLET PO SCH (09:11)
[2016-11-28] MEDS: CHOLECALCIFEROL 1,000 UNIT TABLET (VIT D3) PO SCH (09:11)
[2016-11-28] MEDS: HYDROGEL DRESSING 90 GM TUBE TP SCH ×2 (09:11→23:08)
[2016-11-28] MEDS: MULTIVITAMINS,THERAPEUTIC 1 UDTAB TABLET PO SCH (09:11)
[2016-11-28] MEDS: LACTOBACILLUS RHAMNOSUS GG 1 EACH CAP.SPRINK PO SCH ×2 (09:11→17:23)
[2016-11-28] MEDS: PANTOPRAZOLE 40 MG TABLET.DR PO SCH (09:11)
[2016-11-28] MEDS: FLUCONAZOLE (100 MG) 100 MG TABLET PO SCH (09:11)
[2016-11-28] MEDS: LEVOTHYROXINE SODIUM 50 MCG TABLET PO SCH (09:11)
[2016-11-28] MEDS: MUPIROCIN OINT 2% 22 GM TUBE SCH (09:13)
[2016-11-28] MEDS: CADEXOMER IODINE 40 GM TUBE TP SCH (09:13)
[2016-11-28] MEDS: NEOMY SULF/BACITRAC ZN/POLY 15 GM TUBE TP SCH (09:15)
[2016-11-28] MEDS: Z GUARD REMEDY 2 OZ OINT TP SCH ×2 (09:16→17:24)
[2016-11-28] MEDS ORDERED: SECONDARY IV SET 1 EA INFUS.SET MC ONE ×2 (10:33→13:09)
[2016-11-28] MEDS: CEFTAZIDIME IV SCH (11:00)
[2016-11-28] MEDS: D5W IV SCH (11:00)
[2016-11-28 11:07] LABS: DIFF TOTAL % 100 %; HEMATOCRIT 24 % (33-45); HEMOGLOBIN 7.5 g/dL (11.5-14.8); LYMPHOCYTES # (AUTO) 0.2 /CMM (0.8-4.8); LYMPHOCYTES % (AUTO) 1.4 % (20.0-44.0); MEAN CORPUSCULAR HEMOGLOBIN 29 PG (26.0-33.0); MEAN CORPUSCULAR HGB CONC 32 g/dl (31.0-36.0); MEAN CORPUSCULAR VOLUME 92 fL (82-100); MONOCYTES # (AUTO) 0.2 /CMM (0.1-1.30); MONOCYTES % (AUTO) 1.2 % (2.0-12.0); NEUTROPHILS # (AUTO) 13.6 /CMM (1.8-8.9); NEUTROPHILS % (AUTO) 97.4 % (43.0-81.0); PLATELET COUNT (AUTO) 80 /CMM (150-450); RED BLOOD CELL COUNT(AUTO) 2.57 MIL/uL (4.0-5.2)
[2016-11-28] MEDS ORDERED: DAPTOMYCIN 500 MG in IV NS 0.9% 50 ML IV SCH (12:00)
[2016-11-28 12:20] LABS: ANISOCYTOSIS 1+; BAND % (MANUAL) 4 % (0.0-5.0); CORRECTED WHITE BLOOD COUNT 13.2 K/uL (4.0-11.2); HYPOCHROMASIA 1+; LYMPHOCYTES % (MANUAL) 2 % (16-48); PLATELET ESTIMATE DECREASED
[2016-11-28 16:00] VITALS: BP 87/44
[2016-11-28 18:00] VITALS: BP 92/47
[2016-11-28 20:00] VITALS: BP 80/40
[2016-11-28] MEDS ORDERED: MUPIROCIN OINT 2% 22 GM TUBE SCH (21:00)
[2016-11-28] MEDS ORDERED: SIMVASTATIN 20 MG TABLET PO SCH (22:00)
[2016-11-28] MEDS: QUETIAPINE FUMARATE 25 MG TABLET PO SCH (22:00)
[2016-11-29] MEDS: IV NS 0.9% 1,000 ML IV PRN (04:42)
[2016-11-29 07:54] LABS: ANION GAP 27 (5-14); CARBON DIOXIDE 13 mmol/L (21-32); CHLORIDE 113 mmol/L (98-107); CREATININE 3.9 mg/dL (0.6-1.3); GLUCOSE 91 mg/dL (74-106); POTASSIUM 4.6 mmol/L (3.5-5.1); SODIUM SERUM 148 mmol/L (136-145)
[2016-11-29 08:00] VITALS: BP 77/46
[2016-11-29 08:15] LABS: UREA NITROGEN, BLOOD 82 mg/dL (7-18)
[2016-11-29 08:16] LABS: LACTIC ACID 2.9 mmol/L (0.4-2.0)
[2016-11-29 08:36] LABS: *LACTIC ACID REFLEX FLAG YES
[2016-11-29] MEDS: CHOLECALCIFEROL 1,000 UNIT TABLET (VIT D3) PO SCH (09:03)
[2016-11-29] MEDS: PANTOPRAZOLE 40 MG TABLET.DR PO SCH (09:03)
[2016-11-29] MEDS: BOOST PLUS FOOD-VANILLA 237 ML BOX PO SCH ×3 (09:03→18:24)
[2016-11-29] MEDS: LACTOBACILLUS RHAMNOSUS GG 1 EACH CAP.SPRINK PO SCH ×2 (09:03→18:24)
[2016-11-29] MEDS: LEVOTHYROXINE SODIUM 50 MCG TABLET PO SCH (09:03)
[2016-11-29] MEDS: ASCORBIC ACID 500 MG TABLET PO SCH (09:03)
[2016-11-29] MEDS: MULTIVITAMINS,THERAPEUTIC 1 UDTAB TABLET PO SCH (09:03)
[2016-11-29] MEDS: FLUCONAZOLE (100 MG) 100 MG TABLET PO SCH (09:03)
[2016-11-29] MEDS: CADEXOMER IODINE 40 GM TUBE TP SCH (09:05)
[2016-11-29] MEDS: HYDROGEL DRESSING 90 GM TUBE TP SCH ×2 (09:05→21:47)
[2016-11-29] MEDS: Z GUARD REMEDY 2 OZ OINT TP SCH ×2 (09:07→18:25)
[2016-11-29] MEDS: NEOMY SULF/BACITRAC ZN/POLY 15 GM TUBE TP SCH (09:08)
[2016-11-29 10:26] LABS: BASOPHILS % (AUTO) 0.3 % (0.0-2.0); DIFF TOTAL % 100 %; HEMATOCRIT 25 % (33-45); HEMOGLOBIN 8.1 g/dL (11.5-14.8); LYMPHOCYTES # (AUTO) 0.3 /CMM (0.8-4.8); LYMPHOCYTES % (AUTO) 1.9 % (20.0-44.0); MEAN CORPUSCULAR HEMOGLOBIN 29 PG (26.0-33.0); MEAN CORPUSCULAR HGB CONC 32 g/dl (31.0-36.0); MEAN CORPUSCULAR VOLUME 92 fL (82-100); MONOCYTES # (AUTO) 0.3 /CMM (0.1-1.30); NEUTROPHILS % (AUTO) 95.8 % (43.0-81.0); PLATELET COUNT (AUTO) 70 /CMM (150-450); RED BLOOD CELL COUNT(AUTO) 2.77 MIL/uL (4.0-5.2); WHITE BLOOD COUNT (AUTO) 16.7 K/uL (4.3-11.0)
[2016-11-29 10:35] LABS: BAND % (MANUAL) 1 % (0.0-5.0); CORRECTED WHITE BLOOD COUNT 15.8 K/uL (4.0-11.2); LYMPHOCYTES % (MANUAL) 2 % (16-48)
[2016-11-29 10:37] LABS: BILIRUBIN,DIRECT 0.8 mg/dL (0.0-0.2); BILIRUBIN,TOTAL 1.3 mg/dL (0.2-1.0)
[2016-11-29 10:40] LABS: ANISOCYTOSIS 1+; BURR CELLS 2+; HYPOCHROMASIA 1+; PLATELET ESTIMATE DECREASED
[2016-11-29] MEDS: D5W IV SCH (11:01)
[2016-11-29] MEDS: CEFTAZIDIME IV SCH (11:01)
[2016-11-29] MEDS ORDERED: IV NS 0.9% 1,000 ML IV PRN (11:02)
[2016-11-29] MEDS: SODIUM BICARBONATE 650 MG TABLET PO SCH ×3 (12:48→21:46)
[2016-11-29 16:00] VITALS: BP 74/39
[2016-11-29 20:34] VITALS: BP 94/59
[2016-11-29] MEDS: QUETIAPINE FUMARATE 25 MG TABLET PO SCH ×2 (21:46→21:57)
== END 2016-11-30 02:10 | disposition expired | DRG 853 ==
LOC: ER 12:17 → MEDSG2 13:59 → TELE 16:18 → MED 11-18 08:35 → TELE 11-26 16:46 → MED 11-28 06:44
PROVIDERS: ADMIT Internal Medicine; ATTEND Internal Medicine
PROC: 05H533Z Insertion of Infusion Device into Right Subclavian Vein, Percutaneous Approach (ICD-10-PCS; 2016-11-19)
PROC: 30233N1 Transfusion of Nonautologous Red Blood Cells into Peripheral Vein, Percutaneous Approach (ICD-10-PCS; 2016-11-22)
PROC: 0QBP0ZZ Excision of Left Metatarsal, Open Approach (ICD-10-PCS; principal; 2016-11-23)
PROC: 0QBN0ZZ Excision of Right Metatarsal, Open Approach (ICD-10-PCS; 2016-11-23)
PROC: 05H533Z Insertion of Infusion Device into Right Subclavian Vein, Percutaneous Approach (ICD-10-PCS; 2016-11-29)
DX: A41.9 Sepsis, unspecified organism (principal); G92 Toxic encephalopathy; N17.0 Acute kidney failure with tubular necrosis; E43 Unspecified severe protein-calorie malnutrition; D68.59 Other primary thrombophilia; N39.0 Urinary tract infection, site not specified; D62 Acute posthemorrhagic anemia; E87.2 Acidosis; L03.116 Cellulitis of left lower limb; L03.115 Cellulitis of right lower limb; M86.8X7 Other osteomyelitis, ankle and foot; I50.32 Chronic diastolic (congestive) heart failure; B49 Unspecified mycosis; I13.0 Hypertensive heart and chronic kidney disease with heart failure and stage 1 through stage 4 chronic kidney disease, or unspecified chronic kidney disease; D63.8 Anemia in other chronic diseases classified elsewhere; E03.9 Hypothyroidism, unspecified; Z86.73 Personal history of transient ischemic attack (TIA), and cerebral infarction without residual deficits; S81.802A Unspecified open wound, left lower leg, initial encounter; S81.801A Unspecified open wound, right lower leg, initial encounter; X58.XXXA Exposure to other specified factors, initial encounter; Y93.9 Activity, unspecified; Y92.89 Other specified places as the place of occurrence of the external cause; Y99.9 Unspecified external cause status; D50.0 Iron deficiency anemia secondary to blood loss (chronic); E86.0 Dehydration; E87.5 Hyperkalemia; F03.90 Unspecified dementia, unspecified severity, without behavioral disturbance, psychotic disturbance, mood disturbance, and anxiety; R65.20 Severe sepsis without septic shock; Z66 Do not resuscitate; Z86.711 Personal history of pulmonary embolism; Z86.718 Personal history of other venous thrombosis and embolism; Z98.82 Breast implant status; Z91.19 Patient's noncompliance with other medical treatment and regimen; Z73.6 Limitation of activities due to disability; E88.09 Other disorders of plasma-protein metabolism, not elsewhere classified; M62.50 Muscle wasting and atrophy, not elsewhere classified, unspecified site; Z68.23 Body mass index [BMI] 23.0-23.9, adult; L98.9 Disorder of the skin and subcutaneous tissue, unspecified; I95.9 Hypotension, unspecified; I70.25 Atherosclerosis of native arteries of other extremities with ulceration; L89.621 Pressure ulcer of left heel, stage 1; S41.102A Unspecified open wound of left upper arm, initial encounter; L89.611 Pressure ulcer of right heel, stage 1; S41.101A Unspecified open wound of right upper arm, initial encounter; L89.320 Pressure ulcer of left buttock, unstageable; L89.310 Pressure ulcer of right buttock, unstageable; L97.529 Non-pressure chronic ulcer of other part of left foot with unspecified severity; L97.519 Non-pressure chronic ulcer of other part of right foot with unspecified severity; Z22.322 Carrier or suspected carrier of Methicillin resistant Staphylococcus aureus; L89.159 Pressure ulcer of sacral region, unspecified stage; D69.6 Thrombocytopenia, unspecified; N18.9 Chronic kidney disease, unspecified; F29 Unspecified psychosis not due to a substance or known physiological condition; I25.10 Atherosclerotic heart disease of native coronary artery without angina pectoris; E11.69 Type 2 diabetes mellitus with other specified complication
CPT/HCPCS: 36415; 71010-TC; 73630-TC; 80048-TC; 80053-TC; 80076-TC; 80202-TC; 81000-TC; 82040-TC; 82247-TC; 82248-TC; 82553-TC; 82570-TC; 83605-TC; 83735-TC; 83880; 84100-TC; 84155-TC; 84300-TC; 84443-TC; 84484-TC; 85025-TC; 85027-TC; 85730-TC; 86850-TC; 86921-TC; 87040-TC; 87070-TC; 87081-TC; 87086-TC; 87186-TC; 92611-TC; 93925-TC; 94799-TC; 97001-TC; A4216; A4606; A6248; A6253; A6402; A6403; J0713; J0878; J0885; J2270; J2543; J3370; J3490; J7030; J7040; J7050; J7060; P9016-BL; P9047; Z7610